=== PATIENT | male | born 1950 | race Two or more races ===

== ENCOUNTER 2016-05-12 17:38 | Emergency (ER) | payer SELFPAY ==
[~2016-05-12] VITALS: Ht 180.3 cm; Wt 65.8 kg
[2016-05-12] MEDS ORDERED: HYDROCODONE/APAP 5/325MG 1 EACH TABLET ONE (18:19)
[2016-05-12] MEDS ORDERED: HYDROCODONE/APAP 5/325MG 1 EACH TABLET PO ONE (18:30)
[2016-05-12 19:49] VITALS: BP 142/97
== END 2016-05-12 19:50 | disposition home or self-care (01) ==
LOC: ER 19:18
DX: S52.501A Unspecified fracture of the lower end of right radius, initial encounter for closed fracture (principal); W18.39XA Other fall on same level, initial encounter; Y93.89 Activity, other specified; Y92.89 Other specified places as the place of occurrence of the external cause; Y99.8 Other external cause status
CPT/HCPCS: 29125; 73110; 99284; A4606; Z7610

== ENCOUNTER 2017-02-17 01:19 | Inpatient (IN) | payer MEDICAID, OTHER ==
[~2017-02-17] VITALS: Ht 180.3 cm; Wt 76.7 kg
[2017-02-17] MEDS ORDERED: ONDANSETRON HCL/PF 4 MG/2 ML VIAL IVP ONE (01:30)
[2017-02-17] MEDS ORDERED: IV NS 0.9% 500 ML BAG IV ONE (01:30)
[2017-02-17] MEDS ORDERED: PANTOPRAZOLE 40 MG VIAL IV ONE (01:30)
--- NOTE | 2017-02-17 01:50 | NUR ---
PATIENT RECEIVED FROM EMS WITH ETOH REPORTING "I DID HAROINE YESTERDAY AND METH RECENTLY". PATIENT HAS SHALLOW BREATHS WITH NO SOB 02 SATURATION LESS THAN 90% ON RA. GENERALIZED PAIN 6/10. WILL CONTINUE TO MONITOR FOR ANY CHANGES
[2017-02-17] MEDS ORDERED: PANTOPRAZOLE 40 MG VIAL ONE (01:52)
[2017-02-17] MEDS ORDERED: ONDANSETRON HCL/PF 4 MG/2 ML VIAL ONE (01:52)
--- NOTE | 2017-02-17 01:55 | NUR ---
LAB AT BEDSIDE FRO BLOOD DRAW
[2017-02-17 02:14] LABS: BASOPHILS % (AUTO) 0.3 % (0.0-2.0); HEMATOCRIT 44 % (39-51); HEMOGLOBIN 14.4 g/dL (13.5-17.5); LYMPHOCYTES # (AUTO) 0.5 /CMM (0.8-4.8); LYMPHOCYTES % (AUTO) 3.3 % (20.0-44.0); MEAN CORPUSCULAR HEMOGLOBIN 29 PG (26.0-33.0); MEAN CORPUSCULAR HGB CONC 33 g/dl (31.0-36.0); MEAN CORPUSCULAR VOLUME 89 fL (80-96); MONOCYTES # (AUTO) 0.5 /CMM (0.1-1.30); MONOCYTES % (AUTO) 3.2 % (2.0-12.0); NEUTROPHILS # (AUTO) 13.6 /CMM (1.8-8.9); NEUTROPHILS % (AUTO) 93.2 % (43.0-81.0); PLATELET COUNT (AUTO) 250 /CMM (150-450); RED BLOOD CELL COUNT(AUTO) 4.96 MIL/uL (4.5-6.0); WHITE BLOOD COUNT (AUTO) 14.6 K/uL (4.3-11.0)
[2017-02-17 02:23] LABS: CALCIUM, SERUM 8.9 mg/dL (8.5-10.1); POTASSIUM 3.8 mmol/L (3.5-5.1)
[2017-02-17 02:25] LABS: INR 0.95 (0.87-1.13); PROTHROMBIN TIME 9.9 SECS (9.5-12.7)
[2017-02-17 02:29] LABS: TROPONIN I 0.02 ng/mL (0.00-0.056)
[2017-02-17 02:34] LABS: ALBUMIN 3.2 g/dL (3.4-5.0); BILIRUBIN,DIRECT 0.1 mg/dL (0.0-0.2); BILIRUBIN,TOTAL 0.6 mg/dL (0.2-1.0); TOTAL PROTEIN, SERUM 7.4 g/dL (6.4-8.2)
--- NOTE | 2017-02-17 03:04 | NUR ---
report given to charo
[2017-02-17 03:30] VITALS: BP 141/75
[2017-02-17] MEDS ORDERED: MAGNESIUM HYDROXIDE 30 ML UDC PO PRN (03:30)
[2017-02-17] MEDS ORDERED: MAG HYDROX/AL HYDROX/SIMETH 30 ML UDC PO PRN (03:30)
[2017-02-17] MEDS ORDERED: Z GUARD REMEDY 2 OZ OINT TP PRN (03:30)
[2017-02-17] MEDS ORDERED: ONDANSETRON HCL/PF 4 MG/2 ML VIAL IVP PRN (03:30)
[2017-02-17] MEDS ORDERED: ACETAMINOPHEN 325 MG TABLET PO PRN (03:30)
--- NOTE | 2017-02-17 03:59 | NUR ---
MS/RN NOTES NEW ADMITTED PATIENT IS A 66 YO MALE, ALERT, ORIENTED X3, ABLE TO VERBALIZE NEEDS, HOMELESS, AMBULATES,W/WEAKNESS, COMPLAINED OF WEAKNESS AND LOWER BACK PAIN, REPORT GIVEN WITH ETOH, ELEVATED WBC, HEROINE AND METH USE, REPORT HEP C, PREVIOUS SX ON WRIST FX 2015, LEFT ANKLE WITH WOUND, MD ORDER PATIENT TO BE NPO , PATIENT COMPLIANT TO CARE, BELONGINGS CHECK WITH WALLET AND VALDIVIA TO KEEP IN SAFE PER PATIENT, SMOKER,,RESPIRATIONS EVEN AND UNLABORED, SKIN WARM TO TOUCH, LAST BM TODAY, CALL LIGHTS WITHIN REACH, ROOM ORIENTATION PROVIDED, BED IN LOCK POSITION, REQUIRING OXYGEN VIA NC AT 2L.
--- NOTE | 2017-02-17 06:24 | NUR ---
MS/RN NOTED PATIENT IN BED, ABLE TO VERBALIZE NEEDS. SLEPT DURING THE NIGHT. COOPEARTIVE TO CARE, BED IN LOCK POSITION, URINAL WITHIN REACH. ON 2L OXYGEN VIA NA.CALL LIGHTS WITIHIN REACH, WILL CONTINUE TO MONITOR.
[2017-02-17] MEDS: PANTOPRAZOLE 40 MG TABLET.DR PO SCH (07:30)
--- NOTE | 2017-02-17 07:30 | NUR ---
AM RN NOTE Received patient sleeping comfortably in his bed. No SOB noted resp even and non-labored. On NPO status. IV site intact and patent. Bed in low locked position. Will continue to monitor.
[2017-02-17 08:00] VITALS: BP 126/71
[2017-02-17] MEDS ORDERED: CARI350T27 PO (08:14)
[2017-02-17] MEDS ORDERED: HYDR-552 PO (08:14)
[2017-02-17] MEDS: IV NS 0.9% 1,000 ML IV PRN ×2 (10:00→19:59)
--- NOTE | 2017-02-17 11:05 | NUR ---
AM RN NOTE Pt seen and assessed by Dr. Vazquez with new order to start pt on clear liquid diet, noted and carried out. Spoke with Lorenzo at pharmacy awaiting for Thiamine and folic acid IV meds.
[2017-02-17] MEDS: Folic acid 1 MG in IV D5W 50 ML IV SCH (12:17)
[2017-02-17] MEDS: Thiamine 100 MG in IV D5W 50 ML IV SCH (12:51)
[2017-02-17 16:00] VITALS: BP 121/74
--- NOTE | 2017-02-17 18:19 | NUR ---
AM RN NOTE Patient resting in his bed, no acute distress noted. Will endorse care to next shift.
--- NOTE | 2017-02-17 19:18 | NUR ---
AM RN NOTE Received call from Dr. Dixon () will see pt tomorrow. Endorsed in report.
--- NOTE | 2017-02-17 19:55 | NUR ---
MS RN NOTE: PATIENT RESTING IN BED, NO ACUTE DISTRESS NOTED. BREATHING EVEN AND UNLABORED, NO SOB NOTED. IV TO RFA IN PLACE, INFUSING NS AT 125ML/HR. BED LOCKED AND IN LOWEST POSITION, CALL LIGHT IN REACH, WILL CONTINUE TO MONITOR.
[2017-02-17] MEDS: HYDROCODONE/APAP 5/325MG 1 EACH TABLET PO PRN (19:59)
[2017-02-17 20:00] VITALS: BP 106/65
--- NOTE | 2017-02-17 20:15 | NUR ---
MS RN NOTE: PATIENT COMPLAINS OF BACK PAIN 09/11, NORCO 5/325MG ORAL GIVEN PER MD ORDER. WILL CONTINUE TO MONITOR.
--- NOTE | 2017-02-18 06:20 | NUR ---
MS RN NOTE: PATIENT RESTING IN BED, NO ACUTE DISTRESS NOTED. BREATHING EVEN AND UNLABORED, NO SOB NOTED. IV TO RFA IN PLACE, INFUSING NS AT 125ML/HR. BED LOCKED AND IN LOWEST POSITION, CALL LIGHT IN REACH, WILL ENDORSE TO DAY NURSE TO CONTINUE WITH PLAN OF CARE.
[2017-02-18 06:35] LABS: BASOPHILS % (AUTO) 0.1 % (0.0-2.0); EOSINOPHILS # (AUTO) 0.1 /CMM (0.0-0.7); EOSINOPHILS % (AUTO) 1.1 % (0.0-6.0); HEMATOCRIT 38 % (39-51); HEMOGLOBIN 12.6 g/dL (13.5-17.5); LYMPHOCYTES # (AUTO) 1.1 /CMM (0.8-4.8); MEAN CORPUSCULAR HEMOGLOBIN 30 PG (26.0-33.0); MEAN CORPUSCULAR HGB CONC 33 g/dl (31.0-36.0); MEAN CORPUSCULAR VOLUME 90 fL (80-96); MONOCYTES # (AUTO) 0.8 /CMM (0.1-1.30); MONOCYTES % (AUTO) 6.5 % (2.0-12.0); NEUTROPHILS # (AUTO) 10.5 /CMM (1.8-8.9); NEUTROPHILS % (AUTO) 83.3 % (43.0-81.0); PLATELET COUNT (AUTO) 209 /CMM (150-450); RDW COEFFICIENT OF VARIATION 15.6 (11.5-15.0); RED BLOOD CELL COUNT(AUTO) 4.24 MIL/uL (4.5-6.0); WHITE BLOOD COUNT (AUTO) 12.6 K/uL (4.3-11.0)
[2017-02-18 06:41] LABS: ALBUMIN 2.3 g/dL (3.4-5.0); BILIRUBIN,DIRECT 0.2 mg/dL (0.0-0.2); BILIRUBIN,TOTAL 0.7 mg/dL (0.2-1.0); CALCIUM, SERUM 8.1 mg/dL (8.5-10.1); CREATININE 0.8 mg/dL (0.6-1.3); MAGNESIUM 1.8 mg/dL (1.8-2.4); PHOSPHORUS 1.8 mg/dL (2.5-4.9); POTASSIUM 3.9 mmol/L (3.5-5.1); TOTAL PROTEIN, SERUM 5.8 g/dL (6.4-8.2)
[2017-02-18 06:44] LABS: THYROID STIMULATING HORMONE 0.453 uIU/mL (0.358-3.74)
[2017-02-18] MEDS: PANTOPRAZOLE 40 MG TABLET.DR PO SCH (07:43)
[2017-02-18 08:00] VITALS: BP 136/74
[2017-02-18] MEDS: Thiamine 100 MG in IV D5W 50 ML IV SCH (09:24)
[2017-02-18] MEDS: Folic acid 1 MG in IV D5W 50 ML IV SCH (10:02)
[2017-02-18] MEDS: IV NS 0.9% 1,000 ML IV PRN (12:56)
--- NOTE | 2017-02-18 14:05 | NUR ---
DR CAREY CALLED AND ASKED TO PLACE A CHEST XRAY FOR THE AM IF THERE WAS NOT ONE ORDERED ALREADY. PLACED ORDER PER .
[2017-02-18 16:00] VITALS: BP 130/74
[2017-02-18] MEDS ORDERED: K PHOS NEUTRAL 250 MG TABLET PO ONE (16:30)
[2017-02-18] MEDS: HYDROCODONE/APAP 5/325MG 1 EACH TABLET PO PRN (17:21)
--- NOTE | 2017-02-18 18:36 | NUR ---
CLOSING NOTES NO SIGNIFICANT CHANGES IN PATIENT CONDITION THROUGHOUT THE SHIFT. NO SOB OR DISTRESS NOTED AT THIS TIME. PATIENT SLEEPING AFTER NORCO DOES. DOES NOT APPEAR TO BE IN PAIN. BED IN A LOW POSITION, CALL LIGHT WITHIN PATIENT REACH. WILL ENDORSE FOR KAMALJIT.
--- NOTE | 2017-02-18 19:30 | NUR ---
RN NOTE; RECEIVED PT IN BED SLEEPING, AROUSES EASILY. BREATHING EVENLY. NO SOB. NAD. SKIN WARM AND DRY, ON ONGOING IVF HYDRATION RUFINO WELL, IV SITE INTACT AND PATENT. CALL LIGHT WITHIN REACH. WILL CONT TO MONITOR.
[2017-02-18 19:51] VITALS: BP 139/77
[2017-02-18 20:00] VITALS: BP 139/77
[2017-02-19] MEDS: HYDROCODONE/APAP 5/325MG 1 EACH TABLET PO PRN ×2 (01:47→15:58)
--- NOTE | 2017-02-19 01:47 | NUR ---
NORCO 5/325 GIVEN ORDERED PER PT'S REQUEST FOR C/O LOWER BACK PAIN. WILL CONT TO MONITOR ,
[2017-02-19 06:28] LABS: BASOPHILS % (AUTO) 0.1 % (0.0-2.0); EOSINOPHILS # (AUTO) 0.3 /CMM (0.0-0.7); HEMATOCRIT 38 % (39-51); HEMOGLOBIN 12.3 g/dL (13.5-17.5); LYMPHOCYTES # (AUTO) 1.1 /CMM (0.8-4.8); LYMPHOCYTES % (AUTO) 11.8 % (20.0-44.0); MEAN CORPUSCULAR HEMOGLOBIN 30 PG (26.0-33.0); MEAN CORPUSCULAR HGB CONC 33 g/dl (31.0-36.0); MEAN CORPUSCULAR VOLUME 90 fL (80-96); MONOCYTES # (AUTO) 0.7 /CMM (0.1-1.30); MONOCYTES % (AUTO) 8.1 % (2.0-12.0); NEUTROPHILS # (AUTO) 6.9 /CMM (1.8-8.9); PLATELET COUNT (AUTO) 212 /CMM (150-450); RED BLOOD CELL COUNT(AUTO) 4.18 MIL/uL (4.5-6.0); WHITE BLOOD COUNT (AUTO) 8.9 K/uL (4.3-11.0)
[2017-02-19 06:46] LABS: CALCIUM, SERUM 8.2 mg/dL (8.5-10.1); CREATININE 0.6 mg/dL (0.6-1.3); POTASSIUM 3.7 mmol/L (3.5-5.1)
--- NOTE | 2017-02-19 07:18 | NUR ---
RN NOTE; PT IN BED SLEEPING, AROUSES EASILY. BREATHING EVENLY. NO SOB. NO C/O PAIN OR DISCOMFORT. NO C/O ABD PAIN. NO EPISODE OF VOMITING DURING THE NIGHT. NO BM YET. PT WAS ADVISED TO NOT TO FLUSH THE TOILET IF HE HAS A BM. NEEDS ATTENDED, CALL LIGHT WITHIN REACH. REPORT GIVEN TO THEO BETHEA FOR KAMALJIT.
--- NOTE | 2017-02-19 07:20 | NUR ---
ms rn initial notes Received patient in bed, asleep, head of bed elevated, no SOB or distress noted, on room air with 02 saturation of 98%. Alert and oriented x 3, verbally responsive and able to make needs known. IV intact and patent with IVF infusing well. No facial grimace noted during round. Kept patient clean and comfortable in bed, call light with in patient reach, will continue to monitor accordingly.
[2017-02-19 08:00] VITALS: BP 170/86
[2017-02-19] MEDS: PANTOPRAZOLE 40 MG TABLET.DR PO SCH (08:11)
[2017-02-19] MEDS ORDERED: THIAMINE HCL 100 MG TABLET PO SCH (09:00)
[2017-02-19] MEDS ORDERED: FOLIC ACID 1 MG TABLET PO SCH (09:00)
[2017-02-19 11:00] LABS: ALBUMIN 2.2 g/dL (3.4-5.0); BILIRUBIN,DIRECT 0.1 mg/dL (0.0-0.2); BILIRUBIN,TOTAL 0.5 mg/dL (0.2-1.0); TOTAL PROTEIN, SERUM 5.9 g/dL (6.4-8.2)
--- NOTE | 2017-02-19 11:06 | NUR ---
Social service consult requested by [facility] for homelessness. Pt. is a 66 year old male who was admitted to [facility] for GI Bleed. JAMIE met with pt. bedside. Pt. is alert and oriented x 4. Pt. was friendly and cooperative with SW during the assessment. Pt. states he is homeless and has been homeless for the past 5 years. Pt. was recently incarcerated for three months for grand theft auto, however pt. denies the crime committed. Pt. was receiving services through [facility]. JAMIE encouraged pt. to reach out to [facility] again to reinstate services. Pt. currently has no income and is planning to go to [facility] office in [place] to apply for general relief and food stamps. Pt. denies suicidal and homicidal ideations and visual/auditory hallucinations at this time. Pt. was seeing a psychiatrist at [facility] and saw a psychiatrist once while in long term. Pt. has no history of psychiatric hospitalizations. JAMIE discussed discharge plan with pt. Pt. is unsure as to where he is going to go. However, pt. is willing to accept homeless jail resources upon discharge. JAMIE also informed pt. about the winter shelters. SW to follow up with pt. prior to discharge to offer him the resources and possible winter jail placement if pt. is interested. Addendum: 02/19/17 at 1351 by ELLEN AYALA JAMIE was informed by THEO Goldsmith that pt. will be discharged today. JAMIE met with pt. bedside to discuss discharge plan. JAMIE offered pt. winter jail placement, however pt. declined. Pt. states he will arrange his own living arrangements with homeless resources that were provided to pt. The resources given include winter jail resources, homeless resources such as various shelters, food resources, mental health clinics and medical clinics in [facility]. Homeless Patient Waiver form was signed by pt. and a copy was placed in pt's chart. JAMIE updated THEO Goldsmith regarding pt's discharge plan. No other social services analyst needs are required at this time. SW is available, if needed.
[2017-02-19 16:00] VITALS: BP 116/79
--- NOTE | 2017-02-19 19:49 | NUR ---
ms blow torch burner notes discharge instructions given to patient and able to understand instruction. Signed discharge paper and belonging list. Missing items marked on the belonging form and informed RN supervisor payroll. Instructed patient to come back tomorrow to check with his clothes and rest of his stuff. Prescription given. Health teaching and education given to patient and to follow up with his primary health care physician in 1-2 weeks. Shoes replaced. Money and wallet given to patient. Pictures was taken by overnight stocker RN and filed in the chart. No SOB or distress at this time. No complaint of pain or discomfort nor chest pain. Endorsed to next shift RN once the shoe comes patient can leave the hospital. Refused flu and pneumonia vaccine, explained the risk and benefits x 3 and still refused.
--- NOTE | 2017-02-19 19:50 | NUR ---
RN NOTES RECEIVED PT AWAKE IN BED, HOB ELEVATED, NO SIGNS OF DISTRESS AND DISCOMFORT NOTED. PT ALERT AND ORIENTED X3, DENIES ANY PAIN, NAUSEA AND VOMITING. WOUND CARE ON LEFT ANKLE DONE. PT AWAITING FOR HIS SHOES AND WILL BE DISCHARGE.
--- NOTE | 2017-02-19 20:05 | NUR ---
RN NOTES PT HAS HIS SHOES ON. DISCHARGE INSTRUCTIONS AND HOME MEDS GIVEN TO THE PT. IV ACCESS REMOVED AND PRESSURE DRESSING APPLIED. PT DENIES ANY PAIN AND DISCOMFORT. DISCHARGE PT IN STABLE CONDITION AMBULATORY AND ASSISTED TO THE LOBBY BY THE ADDICTION PROFESSIONAL.
== END 2017-02-19 20:05 | disposition home or self-care (01) | DRG 241 ==
LOC: ER 01:20 → MEDSG2 03:05
PROVIDERS: ADMIT Nurse Practitioner Acute Care; ATTEND Nurse Practitioner Acute Care
DX: K29.71 Gastritis, unspecified, with bleeding (principal); J15.9 Unspecified bacterial pneumonia; K74.60 Unspecified cirrhosis of liver; B19.20 Unspecified viral hepatitis C without hepatic coma; F10.11 Alcohol abuse, in remission; Y90.9 Presence of alcohol in blood, level not specified; S91.002D Unspecified open wound, left ankle, subsequent encounter; X58.XXXD Exposure to other specified factors, subsequent encounter
CPT/HCPCS: 36415; 71010-TC; 76705-TC; 80048-TC; 80061-TC; 80076-TC; 82140-TC; 83605-TC; 83690-TC; 83735-TC; 84100-TC; 84443-TC; 84484-TC; 85025-TC; 85730-TC; 86850-TC; 87081-TC; A4606; A6402; C9113; J2405; J3411; J3490; J7030; J7040; J7060; Z7610

== ENCOUNTER 2018-07-20 17:22 | Emergency (ER) | payer MEDICARE, MEDICAID ==
[~2018-07-20] VITALS: Ht 180.3 cm; Wt 68.0 kg
[~2018-07-20 17:22] MED LIST: CARI350T27 PO; HYDR-4384 PO
--- NOTE | 2018-07-20 18:00 | NUR ---
patient came to the ER c/o left leg pain, on room air, breathing evenly and unlabored. Kept comfortable, will continue to monitor accordingly.
--- NOTE | 2018-07-20 19:15 | NUR ---
endorsed to Radha VENEGAS for cory.
[2018-07-20 20:01] VITALS: BP 133/76
== END 2018-07-20 20:08 | disposition home or self-care (01) ==
LOC: ER 17:26
DX: M54.16 Radiculopathy, lumbar region (principal); G89.29 Other chronic pain; M54.5 Low back pain; F19.10 Other psychoactive substance abuse, uncomplicated; F10.10 Alcohol abuse, uncomplicated; F17.200 Nicotine dependence, unspecified, uncomplicated; Y90.9 Presence of alcohol in blood, level not specified; Z86.19 Personal history of other infectious and parasitic diseases
CPT/HCPCS: 72131-TC

== ENCOUNTER 2019-04-28 11:34 | Emergency (ER) | payer OTHER, MEDICARE ==
[~2019-04-28] VITALS: Ht 180.3 cm; Wt 61.2 kg
--- NOTE | 2019-04-28 11:59 | NUR ---
Patient michael bishnud, in custody, medical clearance for OTB, heroin withdrawal.
--- NOTE | 2019-04-28 12:15 | NUR ---
PT IS A HARD STICK. FUR GRADER [facility] AWARE
[2019-04-28] MEDS: IV NS 0.9% 1,000 ML BAG IV ONE (12:47)
--- NOTE | 2019-04-28 13:07 | NUR ---
Patient is resting comfortably in bed with eyes closed. Easily aroused. VSS
[2019-04-28 13:46] LABS: BASOPHILS # (AUTO) 0.1 /CMM (0.0-0.2); BASOPHILS % (AUTO) 0.9 % (0.0-2.0); EOSINOPHILS % (AUTO) 1.7 % (0.0-6.0); HEMATOCRIT 38 % (39-51); HEMOGLOBIN 12.7 g/dL (13.5-17.5); LYMPHOCYTES # (AUTO) 1.3 /CMM (0.8-4.8); LYMPHOCYTES % (AUTO) 16.1 % (20.0-44.0); MEAN CORPUSCULAR HGB CONC 34 g/dl (31.0-36.0); MEAN CORPUSCULAR VOLUME 79 fL (80-96); MONOCYTES # (AUTO) 0.6 /CMM (0.1-1.30); MONOCYTES % (AUTO) 6.6 % (2.0-12.0); NEUTROPHILS # (AUTO) 6.2 /CMM (1.8-8.9); NEUTROPHILS % (AUTO) 74.7 % (43.0-81.0); PLATELET COUNT (AUTO) 450 /CMM (150-450); RED BLOOD CELL COUNT(AUTO) 4.73 MIL/uL (4.5-6.0); WHITE BLOOD COUNT (AUTO) 8.3 K/uL (4.3-11.0)
[2019-04-28 13:51] LABS: APPEARANCE,URINE Clear (CLEAR); BILIRUBIN,URINE Negative (NEGATIVE); BLOOD, URINE Negative Ery/uL (NEGATIVE); COLOR,URINE Yellow (YELLOW); KETONES,URINE Negative (NEGATIVE); LEUKOCYTE ESTERASE ,URINE Negative (NEGATIVE); NITRITE, URINE Negative (NEGATIVE); PROTEIN,URINE Negative (NEGATIVE); UGLUCOSE Negative (NEGATIVE); UROBILINOGEN,URINE 0.2 EU/dL (0.2)
[2019-04-28 13:53] LABS: CALCIUM, SERUM 8.5 mg/dL (8.5-10.1); CREATININE 0.9 mg/dL (0.6-1.3); POTASSIUM 4.1 mmol/L (3.5-5.1)
[2019-04-28 13:56] LABS: ALCOHOL, BLOOD < 3 mg/dL (0-0)
[2019-04-28 14:04] LABS: ALBUMIN 2.6 g/dL (3.4-5.0); BILIRUBIN,DIRECT 0.2 mg/dL (0.0-0.2); BILIRUBIN,TOTAL 0.6 mg/dL (0.2-1.0); TOTAL PROTEIN, SERUM 7.1 g/dL (6.4-8.2)
--- NOTE | 2019-04-28 14:37 | NUR ---
IV removed. Catheter intact and site benign. Pressure and 4x4 applied to site. No bleeding noted. Patient discharged to PD in stable condition. Written and verbal after care instructions given. Patient verbalizes understanding of instruction.
[2019-04-28 14:38] VITALS: BP 137/87
== END 2019-04-28 14:38 ==
LOC: ER 11:35
DX: F11.10 Opioid abuse, uncomplicated (principal); F19.10 Other psychoactive substance abuse, uncomplicated; F17.200 Nicotine dependence, unspecified, uncomplicated; I10 Essential (primary) hypertension; Z02.89 Encounter for other administrative examinations; Z86.19 Personal history of other infectious and parasitic diseases
CPT/HCPCS: 71045; 36415; 80048; 80076; 80305; 80307; 81001; 84484; 85025; 93005; 99285; J7030; 81000-TC; G0480

== ENCOUNTER 2019-05-25 19:02 | Inpatient (IN) | payer MEDICARE, OTHER ==
[~2019-05-25] VITALS: Ht 180.3 cm; Wt 64.0 kg
--- NOTE | 2019-05-25 20:11 | NUR ---
wound culture sent to lab for testing
--- NOTE | 2019-05-25 20:14 | NUR ---
PT CAME TO ER BED 12 C/O RIGHT BUTTOCKS PAIN. PATIENT STATES THAT HE WAS IN [facility] AND HE FELL DOWN THE "5-6FT" ONTO A STOOL AND IT CAUSED A HOLE IN HIS RIGHT BUTTOCKS. PATIENT HAS A WOUND WITH PACKING INSIDE. AAOX4. NO SOB. BREATHING EVENLY AND UNLABORED ON ROOM AIR. CONNECTED TO MONITOR.
[2019-05-25 21:15] LABS: BASOPHILS # (AUTO) 0.1 /CMM (0.0-0.2); BASOPHILS % (AUTO) 0.8 % (0.0-2.0); EOSINOPHILS % (AUTO) 2.4 % (0.0-6.0); HEMATOCRIT 36 % (39-51); HEMOGLOBIN 11.6 g/dL (13.5-17.5); LYMPHOCYTES % (AUTO) 12.4 % (20.0-44.0); MEAN CORPUSCULAR HGB CONC 32 g/dl (31.0-36.0); MEAN CORPUSCULAR VOLUME 82 fL (80-96); MONOCYTES # (AUTO) 0.7 /CMM (0.1-1.30); NEUTROPHILS # (AUTO) 5.8 /CMM (1.8-8.9); NEUTROPHILS % (AUTO) 75.4 % (43.0-81.0); PLATELET COUNT (AUTO) 252 /CMM (150-450); RED BLOOD CELL COUNT(AUTO) 4.36 MIL/uL (4.5-6.0); WHITE BLOOD COUNT (AUTO) 7.7 K/uL (4.3-11.0)
[2019-05-25 21:24] LABS: CALCIUM, SERUM 8.7 mg/dL (8.5-10.1); CARBON DIOXIDE 29 mmol/L (21-32); CHLORIDE 104 mmol/L (98-107); GLUCOSE 100 mg/dL (74-106); SODIUM SERUM 141 mmol/L (136-145); UREA NITROGEN, BLOOD 12 mg/dL (7-18)
[2019-05-25 21:38] LABS: ALANINE AMINOTRANSFERASE 36 U/L (12-78); ALBUMIN 2.8 g/dL (3.4-5.0); ALKALINE PHOSPHATASE 104 U/L (46-116); ASPARTATE AMINOTRANSFERASE 47 U/L (15-37); B-TYPE NATRIURETIC PEPTIDE 313 PG/ML (0-125); BILIRUBIN,DIRECT 0.1 mg/dL (0.0-0.2); BILIRUBIN,TOTAL 0.3 mg/dL (0.2-1.0); TOTAL PROTEIN, SERUM 7.1 g/dL (6.4-8.2)
--- NOTE | 2019-05-25 22:00 | NUR ---
CALLED DUANE FOR CT READING
[2019-05-25] MEDS ORDERED: VANCOMYCIN 1 GM in IV D5W 250 ML IV ONE (22:30)
--- NOTE | 2019-05-25 22:36 | NUR ---
URINE COLLECTED AND SENT TO LAB
[2019-05-25] MEDS ORDERED: VANCOMYCIN 1 GM VIAL ONE (22:44)
[2019-05-25 22:53] LABS: APPEARANCE,URINE CLEAR (CLEAR); BILIRUBIN,URINE SMALL (NEGATIVE); BLOOD, URINE NEGATIVE Ery/uL (NEGATIVE); COLOR,URINE YELLOW (YELLOW); KETONES,URINE NEGATIVE (NEGATIVE); LEUKOCYTE ESTERASE ,URINE NEGATIVE (NEGATIVE); NITRITE, URINE NEGATIVE (NEGATIVE); PROTEIN,URINE NEGATIVE (NEGATIVE); UGLUCOSE NEGATIVE (NEGATIVE)
[2019-05-25 23:33] LABS: BACTERIA,URINE None seen /HPF (None Seen); RBC,URINE 0-2 /HPF (0-2); SQUAMOUS EPITHELIAL CELL,UR Few /HPF (None Seen); WBC,URINE 0-2 /HPF (0-3)
--- NOTE | 2019-05-26 00:36 | NUR ---
PATIENT IS ASLEEP. EASILY AROUSABLE WITH TOUCH AND VERBAL STIMULI. BREATHING EVENLY AND UNLABORED ON ROOM AIR. CONNECTED TO MONITOR.
--- NOTE | 2019-05-26 00:54 | NUR ---
RM: 314-2
--- NOTE | 2019-05-26 01:08 | NUR ---
REPORT GIVEN TO MILLIE VENEGAS FOR KAMALJIT.
[2019-05-26] MEDS ORDERED: IV NS 0.9% 1,000 ML BAG IV ONE (01:30)
[2019-05-26 02:00] VITALS: BP 138/89
[2019-05-26] MEDS ORDERED: TEMAZEPAM 15 MG CAPSULE PO PRN (02:30)
[2019-05-26] MEDS ORDERED: ACETAMINOPHEN 325 MG TABLET PO PRN (02:30)
[2019-05-26] MEDS ORDERED: Z GUARD REMEDY 2 OZ OINT TP PRN (02:30)
[2019-05-26] MEDS ORDERED: MAGNESIUM HYDROXIDE 30 ML UDC PO PRN (02:30)
[2019-05-26] MEDS ORDERED: ONDANSETRON HCL/PF 4 MG/2 ML VIAL IVP PRN (02:30)
[2019-05-26] MEDS ORDERED: PIPERACILLIN /TAZOBACTAM 3.375 G VIAL IV ONE (02:47)
[2019-05-26] MEDS: IV NS 0.9% 1,000 ML IV PRN ×2 (02:53→23:43)
[2019-05-26] MEDS ORDERED: PIPERACILLIN /TAZOBACTAM 3.375 G in IV D5W 50 ML IV ONE (03:00)
--- NOTE | 2019-05-26 03:45 | NUR ---
admission notes: received report from megan medel, pt brought to the unit via stepanrney at 0136. pt is homeless, alert and oriented x 4, on ra respirations even and unlabored. iv access patent and flushing well, currently infusing with iv vancomycin. inventory of belongings completed by rusty ventura. skin assessment performed, please see skin assessment log. wound care provided. vs taken and recorded. oriented pt to unit policy and hourly rounding. pt was provided with couple of juices and sandwich, claimed he hasn't had a decent meal for 6days. discussed plan of care to pt. pt is pleasant and very thankful. safety precautions for fall initiated, call light in reach, will continue monitoring pt.
[2019-05-26] MEDS ORDERED: FEE PK DOSING 1 MIN EA MC ONE (06:41)
--- NOTE | 2019-05-26 06:54 | NUR ---
end of shift report: pt very cooperative, remains on ra, no sob noted, a/o x4, iv access remains patent and flushing well, infusing with ivf as ordered. no s/s of iv infiltration noted. wound dressing remains c/d/i, no active bleeding noted. vs remains stable, needs attended. for wound care consult, plastic consult. safety precautions for fall remains engaged, call light in reach, will endorse to day rn for continuity of care.
--- NOTE | 2019-05-26 07:30 | NUR ---
MS/RN NOTE THE PATIENT IS RECEIVED IN BED. THE PATIENT IS ALERT AND ORIENTED X4. IN ROOM AIR AND DENIES SOB. RESPIRATION REGULAR ND UNLABORED. DENIES PAIN. THE PATIENT IN NO APPARENT DISTRESS. SELENE G 20 PATENT AND NS INFUSING AT 75ML/HR NAD NO S/S INFILTRATION NOTED. BED LOW AND LOCKED. SIDE RAILS UP X3. CALL LIGHT WITHIN REACH. WILL CONTINUE TO MONITOR.
[2019-05-26 08:00] VITALS: BP 136/77
[2019-05-26] MEDS: VANCOMYCIN 0.75 GM in IV D5W 250 ML IV SCH ×2 (08:27→16:08)
[2019-05-26] MEDS: ENOXAPARIN SODIUM 40 MG/0.4 ML DISP.SYRIN SQ SCH (08:28)
[2019-05-26] MEDS: NICOTINE PATCH (14MG) 14 MG PATCH.TD24 TD SCH (08:28)
--- NOTE | 2019-05-26 10:16 | NUR ---
WOUND CARE CONSULT: PT PRESENTS WITH WOUND TO RT BUTTOCK AND TO LEFT ANKLE, PRESENT ON ADMISSION. RECOMMEND SURGICAL CONSULT AND DPM CONSULT. DR FARLEY AND DR FLOR NOTIFIED OF CONSULT REQUESTS. PT IS INCONTINENT AT TIMES. RECOMMENDATIONS MADE FOR SKIN PROTECTION. DISCUSSED WITH NURSING STAFF. DEFER TO SURGICAL TEAMS FOR WOUND TREATMENT PLAN. WILL SEE PRN. Addendum: 05/26/19 at 1017 by WILVER THOMAS WNDNU Amended: Links added.
[2019-05-26] MEDS: PIPERACILLIN /TAZOBACTAM 3.375 G in IV D5W 50 ML IV SCH ×3 (11:18→23:26)
--- NOTE | 2019-05-26 12:15 | NUR ---
MS/RN NOTE THE PATIENT IS NOTED TO HAVE LICE ON HIS HEAD. EDITA VELÁSQUEZ IS MADE AWARE AND OBTAINED ORDER FOR NIX SHAMPOO. THE ORDER IS NOTED AND CARRIED OUT.
[2019-05-26] MEDS ORDERED: PERMETHRIN 59 ML BOTTLE TP ONE (12:30)
[2019-05-26] MEDS ORDERED: DAKINS QUARTER STRENGTH (0.125%) 480 ML BOTTLE TOP SCH (12:30)
[2019-05-26] MEDS ORDERED: MORPHINE SULFATE INJ 4 MG/ML DISP.SYRIN IV PRN (13:00)
[2019-05-26] MEDS: Z GUARD REMEDY 2 OZ OINT TP SCH (15:12)
[2019-05-26] MEDS: HYDROGEL DRESSING 90 GM TUBE TP SCH (15:12)
[2019-05-26 16:00] VITALS: BP 160/90
--- NOTE | 2019-05-26 16:00 | NUR ---
Social service consult requested by MD for homelessness. Per MD notes and chart review, pt is a 69-year-old male with past medical history of melanoma, heroin abuse, hepatitis C, and chronic right buttock wound, who presents to the ER complaining of worsening pain to his right buttock wound. Patient states about 9 to 10 days ago he had a fall and injured his right buttock got admitted to [facility]. According to the patient he subsequently developed an infection that was incised and drained. He has not had any packing changes in the last several days. He states he is not on antibiotics. Patient states he is here because the pain in his buttock is increasing and he is having subjective fevers. He also states he now has increased pain in his low back. IMPORT AND EXPORT CLERK conducted a social service assessment via phone. Pt is alert and oriented x 4. Pt's mood is congruent. Pt reports, he has been homeless since 201. Pt states, [place] by the [address] in [place]. Pt is a heroin user and last used Heroin 2 months ago. Pt denies any other drug and alcohol use. Pt states, he smokes 1/2 pack of cigarettes per day. Pt is interested in attending a drug treatment program in [place]. IMPORT AND EXPORT CLERK to attempt to locate and refer pt to a drug treatment inpatient program in [place]. [facility] offered pt m[facility] placement, however pt declined. Pt states he has depression but is denies any SI/HI and visual/auditory hallucinations at this time. No other social service needs are requested at this time. IMPORT AND EXPORT CLERK is available.
[2019-05-26] MEDS: HYDROCODONE/APAP 10/325MG 1 EA TABLET PO PRN ×2 (16:08→21:31)
--- NOTE | 2019-05-26 19:05 | NUR ---
RN NOTES Received patient awake on bed. On RA, no SOB/respiratory distress noted at this time. With IVF infusing well, no s/sx of infiltration noted. Kept on bed clean, dry and comfortable. Call light within easy reach. Will continue to monitor accordingly.
[2019-05-26 20:00] VITALS: BP 148/81
[2019-05-27] MEDS: VANCOMYCIN 0.75 GM in IV D5W 250 ML IV SCH ×3 (00:38→21:10)
[2019-05-27] MEDS: PIPERACILLIN /TAZOBACTAM 3.375 G in IV D5W 50 ML IV SCH ×2 (05:32→12:35)
--- NOTE | 2019-05-27 06:36 | NUR ---
RN CLOSING NOTES Patient on bed, easily awaken. No complaints made at this time. All nursing needs attended, due meds given as ordered. Kept on bed clean, dry and comfortable. Call light within easy reach. On fall and aspiration precautions. Endorsed.
[2019-05-27 08:00] VITALS: BP 153/94
[2019-05-27 08:32] LABS: ALBUMIN 2.3 g/dL (3.4-5.0); BILIRUBIN,TOTAL 0.4 mg/dL (0.2-1.0); CALCIUM, SERUM 8.1 mg/dL (8.5-10.1); CREATININE 0.9 mg/dL (0.6-1.3); MAGNESIUM 1.7 mg/dL (1.8-2.4); PHOSPHORUS 3.6 mg/dL (2.5-4.9); TOTAL PROTEIN, SERUM 6.2 g/dL (6.4-8.2)
[2019-05-27 08:46] LABS: THYROID STIMULATING HORMONE 5.2 uIU/mL (0.358-3.74)
[2019-05-27] MEDS: NICOTINE PATCH (14MG) 14 MG PATCH.TD24 TD SCH (09:00)
[2019-05-27 09:09] LABS: BASOPHILS # (AUTO) 0.1 /CMM (0.0-0.2); BASOPHILS % (AUTO) 1.1 % (0.0-2.0); EOSINOPHILS % (AUTO) 8.5 % (0.0-6.0); HEMATOCRIT 33 % (39-51); HEMOGLOBIN 10.8 g/dL (13.5-17.5); LYMPHOCYTES # (AUTO) 0.8 /CMM (0.8-4.8); LYMPHOCYTES % (AUTO) 17.4 % (20.0-44.0); MEAN CORPUSCULAR HGB CONC 32 g/dl (31.0-36.0); MEAN CORPUSCULAR VOLUME 83 fL (80-96); MONOCYTES # (AUTO) 0.4 /CMM (0.1-1.30); MONOCYTES % (AUTO) 9.2 % (2.0-12.0); NEUTROPHILS % (AUTO) 63.8 % (43.0-81.0); PLATELET COUNT (AUTO) 215 /CMM (150-450); RED BLOOD CELL COUNT(AUTO) 4.04 MIL/uL (4.5-6.0); WHITE BLOOD COUNT (AUTO) 4.8 K/uL (4.3-11.0)
[2019-05-27] MEDS: HYDROGEL DRESSING 90 GM TUBE TP SCH (11:09)
[2019-05-27] MEDS: Z GUARD REMEDY 2 OZ OINT TP SCH (11:09)
[2019-05-27] MEDS: ENOXAPARIN SODIUM 40 MG/0.4 ML DISP.SYRIN SQ SCH (11:14)
[2019-05-27] MEDS: Magnesium 1GM/D5W 100ML PREMIX 100 ML IV SCH ×2 (13:29→19:02)
[2019-05-27] MEDS: IV NS 0.9% 1,000 ML IV PRN (13:30)
[2019-05-27 16:14] VITALS: BP 153/85
--- NOTE | 2019-05-27 17:00 | NUR ---
mg replacement given for low mg.pt. with infiltrated iv rt. arm.er nurse up here several times to restart iv.put in lt ac #20 gauge. pt. tolerated well.
--- NOTE | 2019-05-27 19:30 | NUR ---
MS RN OPENING NOTE RECEIVED PATIENT ON CONTACT ISOLATION FOR BODY LICE. A/OX4. TOLERATING ROOM AIR. REPARATIONS ARE EVEN AND UNLABORED. NO S/S SOB NOTED. DENIES PAIN AT THIS TIME. IN NO APPARENT DISTRESS. IV ACCESS IN LAC#20 CURRENTLY RUNNING MAGNESIUM. BED IS LOW AND LOCKED, HOB FLAT, SIDE RIALS UP X2. WILL CONTINUE TO MONITOR.
[2019-05-27 20:00] VITALS: BP 151/84
[2019-05-27] MEDS: CEFTRIAXONE 1 G in IV D5W 50 ML IV SCH (20:38)
--- NOTE | 2019-05-27 20:38 | NUR ---
MS RN NOTE LATE ADMINISTRATION OF ROCEPHIN 1G 05/27/19 1900 D/T MAGNESIUM HANGING.
--- NOTE | 2019-05-27 20:46 | NUR ---
MS RN NOTE CALLED PHARMACY D/T VANCO TROUGH IS 20 THIS MORNING. PER PHARMACY OK TO GIVE VANCO 0.75G D/T LEVEL NOT ABOVE 20 AND DOSE/FREQUENCY WAS CHANGED. WILL HANG VANCO AFTER ADMINISTRATION OF ROCEPHIN.
--- NOTE | 2019-05-27 23:00 | NUR ---
MS RN NOTE TRANSFER CONTINUITY OF CARE TO ANA RN.
--- NOTE | 2019-05-27 23:52 | NUR ---
RECEIVED TRANSFER OF CARE FROM ANA VENEGAS.
--- NOTE | 2019-05-28 06:20 | NUR ---
MS RN CLOSING NOTE PATIENT REMAINS ON CONTACT ISOLATION FOR BODY LICE. A/OX4. TOLERATING ROOM AIR. REPARATIONS ARE EVEN AND UNLABORED. NO SOB NOTED. NO C/O PAIN THROUGHOUT SHIFT. NO DISTRESS NOTED. IV ACCESS MAINTAINED IN LAC#20 RUNNING NS@75ML/HR. BED IS LOW AND LOCKED, HOB FLAT, SIDE RIALS UP X2. WILL ENDORSE TO NEXT SHIFT.
[2019-05-28 07:01] LABS: CALCIUM, SERUM 8.6 mg/dL (8.5-10.1); CREATININE 0.7 mg/dL (0.6-1.3); MAGNESIUM 2.2 mg/dL (1.8-2.4); PHOSPHORUS 3.3 mg/dL (2.5-4.9); POTASSIUM 4.5 mmol/L (3.5-5.1)
--- NOTE | 2019-05-28 07:10 | NUR ---
RN OPENING NOTES RECEIVED PATIENT IN BED RESTING. A/OX3, ABLE TO MAKE NEEDS KNOWN. NOT IN ANY FORM OF DISTRESS, NO SOB. DENIED PAIN OR DISCOMFORT AT THIS TIME. IV ACCESS INTACT AND PATENT. MAINTAINED CONTACT ISOLATION PRECAUTIONS FOR BODY LICE. KEPT PATIENT SAFE AND COMFORTABLE. BED IN LOW/LOCKED POSITION, SIDERAILS UPX2, CALL LIGHT IN REACH. WILL CONTINUE TO MONITOR ACCORDINGLY.
[2019-05-28 07:41] LABS: BASOPHILS % (AUTO) 0.8 % (0.0-2.0); EOSINOPHILS % (AUTO) 8.2 % (0.0-6.0); HEMATOCRIT 28 % (39-51); HEMOGLOBIN 8.9 g/dL (13.5-17.5); LYMPHOCYTES % (AUTO) 24.6 % (20.0-44.0); MEAN CORPUSCULAR HGB CONC 32 g/dl (31.0-36.0); MEAN CORPUSCULAR VOLUME 84 fL (80-96); MONOCYTES # (AUTO) 0.6 /CMM (0.1-1.30); MONOCYTES % (AUTO) 14.5 % (2.0-12.0); NEUTROPHILS # (AUTO) 2.1 /CMM (1.8-8.9); NEUTROPHILS % (AUTO) 51.9 % (43.0-81.0); PLATELET COUNT (AUTO) 146 /CMM (150-450); RED BLOOD CELL COUNT(AUTO) 3.27 MIL/uL (4.5-6.0); WHITE BLOOD COUNT (AUTO) 4.1 K/uL (4.3-11.0)
[2019-05-28 08:05] VITALS: BP 156/89
[2019-05-28] MEDS: VANCOMYCIN 0.75 GM in IV D5W 250 ML IV SCH ×2 (08:41→20:34)
[2019-05-28] MEDS: HYDROGEL DRESSING 90 GM TUBE TP SCH (08:46)
[2019-05-28] MEDS: Z GUARD REMEDY 2 OZ OINT TP SCH (08:46)
[2019-05-28] MEDS: ENOXAPARIN SODIUM 40 MG/0.4 ML DISP.SYRIN SQ SCH (09:00)
[2019-05-28] MEDS: NICOTINE PATCH (14MG) 14 MG PATCH.TD24 TD SCH (09:00)
--- NOTE | 2019-05-28 09:50 | NUR ---
EDMUNDO contacted [facility] in [place] and was informed they have no beds at this time. CODIFIER called pt's room and informed the pt regarding no beds at [facility]. Pt is willing to go to [facility]. EDMUNDO faxed clinicals to [facility] at .
--- NOTE | 2019-05-28 10:00 | NUR ---
TLSO BRACE RECEIVED.TEACHING PROVIDED AND PATIENT VERBALIZED UNDERSTANDING
--- NOTE | 2019-05-28 10:30 | NUR ---
ENTRY LEVEL WEB DEVELOPER NOTES PATIENT IN STABLE CONDITION. TLSO BRACE DELIVERED AND PLACED ON THE PATIENT BY CHRISTINE MILLAN. ENDORSED ACCORDINGLY TO THEO MANTILLA
--- NOTE | 2019-05-28 11:50 | NUR ---
APARTMENT MAINTENANCE WORKER received a call from Bryon at [facility] informing APARTMENT MAINTENANCE WORKER that referral packet was forwarded to Virginie Young and she can be reached at x [phone].
--- NOTE | 2019-05-28 12:00 | NUR ---
Received report from Onur VENEGAS
--- NOTE | 2019-05-28 14:35 | NUR ---
ADHESIVE BANDAGE MAKING OPERATOR received a message from Ugo at [facility] informing SW they cannot accept the pt due to pt being on antibiotics and needing ongoing wound care. SW informed TEACHER ADULT EDUCATION Kat Valdez and showcase maker Juliet. manager games to find a SNF for the pt due to pt needing IV antibiotics and wound care.
[2019-05-28] MEDS: DAKINS QUARTER STRENGTH (0.125%) 480 ML BOTTLE TOP SCH (14:46)
--- NOTE | 2019-05-28 15:00 | NUR ---
Wound care provided as ordered and D/C pictures taken.
[2019-05-28 16:00] VITALS: BP 145/87
[2019-05-28] MEDS: CEFTRIAXONE 1 G in IV D5W 50 ML IV SCH (18:01)
--- NOTE | 2019-05-28 18:37 | NUR ---
PATIENT RESTING IN ROOM ,A/OX3. NOT IN ANY FORM OF DISTRESS, NO SOB. DENIED PAIN OR DISCOMFORT AT THIS TIME. IV ACCESS INTACT AND PATENT. MAINTAINED CONTACT ISOLATION PRECAUTIONS FOR BODY LICE. KEPT PATIENT SAFE AND COMFORTABLE. BED IN LOW/LOCKED POSITION, SIDERAILS UPX2, CALL LIGHT IN REACH. WILL ENDORSE TO NEXT SHIFT FOR KAMALJIT.
--- NOTE | 2019-05-28 19:31 | NUR ---
MS RN NOTES PATIENT RECEIVED IN BED, WATCHING TV. ALERT AND ORIENTED X 3. PATIENT PRESENTS NO SIGNS OF RESPIRATORY DISTRESS, NO SIGNS OF SOB, AND WITH EVEN NON-LABORED BREATHING. PATIENT PLACED ON ISOLATIONS PRECAUTION FOR BODY LICE. PATIENT SKIN DRY AND INTACT, IV ACCESS INTACT AND PATENT. SAFETY PRECAUTIONS IMPLEMENTED WITH THE BED IN THE LOWEST POSITION, BILATERAL SIDE RAILS UP, BED ALARM ON, BED LOCKED, AND CALL LIGHT WITHIN EASY REACH OF THE PATIENT. WILL CONTINUE TO MONITOR PATIENT.
[2019-05-28 20:00] VITALS: BP 162/83
[2019-05-28 20:26] VITALS: BP 162/63
[2019-05-29] MEDS: HYDROCODONE/APAP 10/325MG 1 EA TABLET PO PRN (00:45)
--- NOTE | 2019-05-29 00:54 | NUR ---
MS RN NOTES PATIENT COMPLAINING OF SHARP, STABBING, THROBBING BACK LOCATING ON LOWER BACK. PROVIDED COMFORT MEASURES TO PATIENT. PATIENT STATING PAIN LEVEL IS 8/10. ADMINISTERED PRN PAIN MEDICATION NORCO 10/325mg at 0045. WILL REASSESS PATIENT PAIN LEVEL AND CONTINUE TO MONITOR PATIENT.
[2019-05-29] MEDS: IV NS 0.9% 1,000 ML IV PRN (06:03)
--- NOTE | 2019-05-29 06:53 | NUR ---
MS RN NOTES PATIENT IN BED SLEEPING EASILY AWAKEN BY NAME AND LIGHT LIGHT TOUCH. PLACED ON CONTACT PRECAUTIONS DUE O BODY LICE. PATIENT ALERT AND ORIENTED X 4. ON ROOM AIR WITH NO SIGNS OF RESPIRATORY DISTRESS PRESENT WITH EVEN NON-LABORED BREATHING. PATIENT SKIN KEPT CLEAN AND DRY. IV ACCESS INTACT AND PATENT, INFUSING NS AT 75ml/hr. WOUND DRESSING INTACT AND PATENT. MET ALL OF PATIENT NEEDS AND PROVIDED COMFORT MEASURES TO PATIENT. SAFETY PRECAUTIONS IMPLEMENTED WITH BED IN THE LOWEST POSITION, BED LOCKED, BED ALARM ON, BILATERAL SIDE RAILS UP, AND CALL LIGHT WITHIN EASY REACH OF THE PATIENT. WILL ENDORSE PLAN OF CARE TO UPCOMING DAYSHIFT NURSE.
[2019-05-29 07:04] LABS: CALCIUM, SERUM 8.4 mg/dL (8.5-10.1); CREATININE 0.8 mg/dL (0.6-1.3); POTASSIUM 4.5 mmol/L (3.5-5.1)
[2019-05-29 08:00] VITALS: BP 148/94
--- NOTE | 2019-05-29 08:00 | NUR ---
MS RN OPENING NOTES Received Patient awake and resting in bed. A/O x 4. VS stable with no acute distress. Breathing even and unlabored on room air with no respiratory distress. Patient stated tolerable chronic back pain level at this time. Will continue to monitor and intervene as ordered. 20g PIV on LAC clean, intact, patent and flushing well with NS infusing at 75ml/hr. Safety precautions in place. Bed locked and set to lowest position with side rails x 2 up. All needs rendered at this time. Call light within reach. Will continue to monitor.
[2019-05-29] MEDS: NICOTINE PATCH (14MG) 14 MG PATCH.TD24 TD SCH (08:34)
[2019-05-29] MEDS: VANCOMYCIN 0.75 GM in IV D5W 250 ML IV SCH (08:34)
[2019-05-29] MEDS: ENOXAPARIN SODIUM 40 MG/0.4 ML DISP.SYRIN SQ SCH (08:38)
[2019-05-29] MEDS: DAKINS QUARTER STRENGTH (0.125%) 480 ML BOTTLE TOP SCH (08:42)
[2019-05-29] MEDS: HYDROGEL DRESSING 90 GM TUBE TP SCH (08:42)
[2019-05-29] MEDS: Z GUARD REMEDY 2 OZ OINT TP SCH (08:43)
[2019-05-29] MEDS ORDERED: Hydrogel Dressing TP (12:37)
[2019-05-29] MEDS ORDERED: NICO-676 TD (12:37)
[2019-05-29] MEDS ORDERED: SODI473S8 TOP (12:37)
[2019-05-29] MEDS ORDERED: ENOX40DI SQ (12:37)
[2019-05-29] MEDS ORDERED: SULF1TAB48 PO (12:37)
--- NOTE | 2019-05-29 17:40 | NUR ---
MS COMMUNICATIONS PROFESSOR NOTES Patient discharged for [facility] at this time. Patient in stable condition. VS stable with no acute distress. Breathing even and unlabored on room air with no respiratory distress. Denies pain. Removed intact PIV. Skin assessment photos taken and placed in chart. Medication reconciliation and discharge orders reviewed and explained to Patient. Patient verbalized understanding. All belongings with Patient. Patient will follow up with PCP. Patient picked up by EMT transport. Report given to Tomas VENEGAS.
[2019-05-29] MEDS ORDERED: VANCOMYCIN 1 GM in IV D5W 250 ML IV SCH (20:00)
== END 2019-05-29 17:35 | DRG 603 ==
LOC: ER 19:05 → MED 05-26 00:55
PROVIDERS: ADMIT Registered Nurse; ATTEND Nurse Practitioner Acute Care
DX: L03.317 Cellulitis of buttock (principal); M48.56XA Collapsed vertebra, not elsewhere classified, lumbar region, initial encounter for fracture; D68.59 Other primary thrombophilia; L97.329 Non-pressure chronic ulcer of left ankle with unspecified severity; E46 Unspecified protein-calorie malnutrition; M48.54XA Collapsed vertebra, not elsewhere classified, thoracic region, initial encounter for fracture; B19.20 Unspecified viral hepatitis C without hepatic coma; Z85.820 Personal history of malignant melanoma of skin; Z59.0 Homelessness; W19.XXXD Unspecified fall, subsequent encounter; F17.200 Nicotine dependence, unspecified, uncomplicated; Z74.09 Other reduced mobility; E66.9 Obesity, unspecified; Z68.28 Body mass index [BMI] 28.0-28.9, adult; L98.9 Disorder of the skin and subcutaneous tissue, unspecified; M20.42 Other hammer toe(s) (acquired), left foot; M20.41 Other hammer toe(s) (acquired), right foot; M54.9 Dorsalgia, unspecified; F11.21 Opioid dependence, in remission; B95.61 Methicillin susceptible Staphylococcus aureus infection as the cause of diseases classified elsewhere
CPT/HCPCS: 36415; 71045-TC; 72131-TC; 72192-TC; 76642-LT-TC; 80048-TC; 80053-TC; 80061-TC; 80076-TC; 80202-TC; 80305; 81000-TC; 83605-TC; 83735-TC; 83880; 84100-TC; 84443-TC; 84484-TC; 85025-TC; 85730-TC; 87040-TC; 87070-TC; 87081-TC; 93307-TC; 97110-TC; 97116-TC; 97530-TC; A6248; A6253; A6403; G0378; G0480; J0696; J1650; J2543; J3370; J3475; J7030; J7060

== ENCOUNTER 2020-03-02 10:56 | Emergency (ER) | payer OTHER ==
[~2020-03-02] VITALS: Ht 177.8 cm; Wt 79.4 kg
[~2020-03-02 10:56] MED LIST changes: -CARI350T27 PO; +ENOX40DI SQ; -HYDR-4384 PO; +Hydrogel Dressing TP; +NICO-676 TD; +SODI473S8 TOP; +SULF1TAB48 PO
[2020-03-02] MEDS ORDERED: ACETAMINOPHEN 325 MG TABLET ONE (12:05)
[2020-03-02 12:21] LABS: BASOPHILS % (AUTO) 0.2 % (0.0-2.0); HEMATOCRIT 40 % (39-51); HEMOGLOBIN 12.9 g/dL (13.5-17.5); LYMPHOCYTES # (AUTO) 0.3 /CMM (0.8-4.8); LYMPHOCYTES % (AUTO) 1.5 % (20.0-44.0); MEAN CORPUSCULAR HGB CONC 32 g/dl (31.0-36.0); MEAN CORPUSCULAR VOLUME 74 fL (80-96); MONOCYTES # (AUTO) 1.1 /CMM (0.1-1.30); MONOCYTES % (AUTO) 5.3 % (2.0-12.0); PLATELET COUNT (AUTO) 279 /CMM (150-450); RED BLOOD CELL COUNT(AUTO) 5.41 MIL/uL (4.5-6.0); WHITE BLOOD COUNT (AUTO) 21.5 K/uL (4.3-11.0)
[2020-03-02] MEDS: IV NS 0.9% 1,000 ML IV ONE (12:22)
[2020-03-02] MEDS: ACETAMINOPHEN 325 MG TABLET PO ONE (12:22)
--- NOTE | 2020-03-02 12:24 | NUR ---
patient bibra from tent c/o gluteus cellulitis. On room air, breathing evenly and unlabored. Connected to the monitor and pulse ox. kept comfortable, will continue to monitor accordingly. IV access initiated and blood drawned and sent to lab.
[2020-03-02 12:28] LABS: CALCIUM, SERUM 9.1 mg/dL (8.5-10.1); POTASSIUM 3.9 mmol/L (3.5-5.1)
[2020-03-02] MEDS ORDERED: IOHEXOL-300 100 ML VIAL IV ONE (12:57)
[2020-03-02] MEDS ORDERED: IV NS 0.9% 250 ML IV ONE (12:57)
[2020-03-02] MEDS: CEFEPIME 1 GM in IV D5W 50 ML IV ONE (13:30)
[2020-03-02] MEDS: VANCOMYCIN 1 GM in IV D5W 250 ML IV ONE (14:30)
--- NOTE | 2020-03-02 15:01 | NUR ---
received a call from Mabel from [facility], report given and will call back for transfer info.
--- NOTE | 2020-03-02 15:45 | NUR ---
received a call from the lab regarding covid 19 result "negative"
--- NOTE | 2020-03-02 16:21 | NUR ---
FAXED COVID RESULT TO [phone] [facility]
--- NOTE | 2020-03-02 16:45 | NUR ---
MD MACK CALLED TO SPEAK WITH DR. SCHMID
--- NOTE | 2020-03-02 16:52 | NUR ---
NONI CALLED FROM [facility] PT GOING TO [facility]. ACCETING MD IS MARTINA PLEASE CALL [phone] ROOM 224-B RN IS HERBER. TRANSPORT IS BEING ARRAGNED.
--- NOTE | 2020-03-02 17:15 | NUR ---
NONI FROM [facility] CALLED TRANSPORT AVAILABLE [address] [facility]. IF TRANSPORT LATE CALL [phone] NONI TO INFORM.
--- NOTE | 2020-03-02 17:43 | NUR ---
Called [facility] and spoke to Cari report given.
[2020-03-02 19:10] VITALS: BP 139/78
--- NOTE | 2020-03-02 19:14 | NUR ---
patient picked up by private ambulance going to [facility] in no distress.
--- NOTE | 2020-03-03 15:39 | NUR ---
JAMIE received information from [facility] Recordak Operator for Livan Rice Outreach Director Of Philanthropy from [facility] regarding the patient. SW called Livan and informed Livan that the patient was transferred to [facility] on 03/02 [address] [place] [address] . Livan thanked this SW regarding this information, per Livan to follow-up with [facility]. SW to remain available for all needs regarding this patient.
== END 2020-03-02 19:11 | disposition short-term general hospital (02) ==
LOC: ER 11:05
DX: L03.317 Cellulitis of buttock (principal); L02.31 Cutaneous abscess of buttock; S31.813S Puncture wound without foreign body of right buttock, sequela; X78.8XXS Intentional self-harm by other sharp object, sequela; Z59.0 Homelessness; Z20.828 Contact with and (suspected) exposure to other viral communicable diseases; J43.2 Centrilobular emphysema; M84.454G Pathological fracture, pelvis, subsequent encounter for fracture with delayed healing; M84.48XG Pathological fracture, other site, subsequent encounter for fracture with delayed healing; D50.9 Iron deficiency anemia, unspecified; D72.829 Elevated white blood cell count, unspecified; F11.20 Opioid dependence, uncomplicated; Z85.820 Personal history of malignant melanoma of skin; Z86.19 Personal history of other infectious and parasitic diseases
CPT/HCPCS: 36415; 74177; 76882; 80048; 85025; 87081; 87426; 96361; 96365; 96367; 99285; C9803; J0692; J3370; J7030; J7050; J7060; Q9967; U0003